=== PATIENT | male | born 1960 | race Caucasian/White ===

== ENCOUNTER 2021-08-14 07:16 | Day surgery (SDC) | payer OTHER ==
[~2021-08-14 07:16] MED LIST: Midazolam 1 MG/ML 2 ML SDV ONE; Propofol 200 MG/20 ML SDV ONE; fentaNYL 100 MCG/2 ML SDV ONE
[2021-08-14] MEDS: Dextrose 5%-Lactated Ringers 1,000 ML IV SCH (07:56)
[2021-08-14] MEDS: Acetaminophen 500 MG Tab PO ONE (07:56)
[2021-08-14] MEDS ORDERED: Lidocaine 1% with EPINEPHrine 1:100,000 50 ML MDV ONE (08:30)
[2021-08-14] MEDS ORDERED: Bupivacaine 0.5% 50 ML MDV ONE (08:30)
[2021-08-14] MEDS: ceFAZolin 2 GM in Premix Bag 1 BAG IV ONE (09:56)
[2021-08-14] MEDS ORDERED: Propofol 200 MG/20 ML SDV ONE ×3 (10:16→11:35)
[2021-08-14] MEDS: Lidocaine 1% with EPINEPHrine 1:100,000 50 ML MDV ONE (10:33)
[2021-08-14] MEDS: Bupivacaine 0.5% 50 ML MDV ONE (10:33)
[2021-08-14] MEDS ORDERED: Midazolam 1 MG/ML 2 ML SDV ONE (10:34)
[2021-08-14] MEDS ORDERED: fentaNYL 100 MCG/2 ML SDV ONE (11:12)
[2021-08-14] MEDS ORDERED: Lactated Ringers 1,000 ML ONE (11:55)
[2021-08-14] MEDS ORDERED: Ketorolac 30 MG/ML SDV ONE (11:57)
[2021-08-14] MEDS: oxyCODONE 5 MG Tab PO PRN (14:05)
== END 2021-08-14 15:04 | disposition home or self-care (01) ==
LOC: JP.SDS 07:16
PROVIDERS: ATTEND Surgery
DX: K40.01 Bilateral inguinal hernia, with obstruction, without gangrene, recurrent (principal); I10 Essential (primary) hypertension
CPT/HCPCS: 88302; A9270-GY; C1713; C1781; J0690; J1885; J2020; J2250; J2704; J3010; J3490; J7120; J7121

== ENCOUNTER 2021-11-21 06:24 | Day surgery (SDC) | payer OTHER ==
[2021-11-21] MEDS ORDERED: Sodium Chloride 0.9% 1,000 ML IV SCH (07:15)
[2021-11-21] MEDS ORDERED: fentaNYL 100 MCG/2 ML SDV ONE (07:47)
[2021-11-21] MEDS ORDERED: Midazolam 1 MG/ML 2 ML SDV ONE (07:47)
[2021-11-21] MEDS ORDERED: Propofol 200 MG/20 ML SDV ONE (07:47)
== END 2021-11-21 09:30 | disposition home or self-care (01) ==
LOC: JP.SDS 06:24
PROVIDERS: ATTEND Surgery
DX: D12.0 Benign neoplasm of cecum (principal); D12.5 Benign neoplasm of sigmoid colon; K57.30 Diverticulosis of large intestine without perforation or abscess without bleeding; I10 Essential (primary) hypertension; E78.5 Hyperlipidemia, unspecified; Z79.899 Other long term (current) drug therapy; Z79.83 Long term (current) use of bisphosphonates; Z79.810 Long term (current) use of selective estrogen receptor modulators (SERMs)
CPT/HCPCS: 45381; 45385; J2250; J2704; J3010; J7030; 88305

== ENCOUNTER 2022-06-25 06:36 | Day surgery (SDC) | payer OTHER ==
[2022-06-25] MEDS ORDERED: Midazolam 1 MG/ML 2 ML SDV ONE (07:12)
[2022-06-25] MEDS ORDERED: Propofol 200 MG/20 ML SDV ONE (07:12)
[2022-06-25] MEDS ORDERED: fentaNYL 50 MCG/ML SDV ONE (07:12)
[2022-06-25] MEDS ORDERED: Sodium Chloride 0.9% 1,000 ML IV SCH (07:15)
== END 2022-06-25 09:05 | disposition home or self-care (01) ==
LOC: JP.SDS 06:36
PROVIDERS: ATTEND Surgery
DX: Z12.11 Encounter for screening for malignant neoplasm of colon (principal); R93.3 Abnormal findings on diagnostic imaging of other parts of digestive tract; K57.30 Diverticulosis of large intestine without perforation or abscess without bleeding; I10 Essential (primary) hypertension
CPT/HCPCS: 45378; J2250; J2704; J3010; J7030